=== PATIENT | female | born 1950 | race Caucasian/White ===

== ENCOUNTER 2024-06-22 08:05 | Day surgery (SDC) | payer OTHER, BC ==
[2024-06-16 15:59] VITALS: BMI 23.2
[2024-06-22 08:27] VITALS: RESP 16; TEMP 97.5
[2024-06-22] MEDS ORDERED: PROPOFOL 40 ML ONE (09:00)
[2024-06-22 09:55] VITALS: BP 118/65; PULSE 84
== END 2024-06-22 09:56 | disposition home or self-care (01) ==
LOC: FASU-ENDO 08:05
PROVIDERS: ATTEND Internal Medicine Gastroenterology
PROC: 0DBK8ZX Excision of Ascending Colon, Via Natural or Artificial Opening Endoscopic, Diagnostic (ICD-10-PCS; principal; 2024-06-22 09:02)
DX: Z12.11 Encounter for screening for malignant neoplasm of colon (principal); D12.2 Benign neoplasm of ascending colon; K57.30 Diverticulosis of large intestine without perforation or abscess without bleeding
CPT/HCPCS: 82962; 88305-TC